=== PATIENT | male | born 1945 | race Caucasian/White ===

== ENCOUNTER → 2024-07-26 | Outpatient (CLI) | payer MEDICARE, SELFPAY ==
--- NOTE | 2024-07-26 | MASS_PTH ---
PATIENT: VANCE MORALES LOC: [facility] U#:[id number] AGE/SX: 79/M ROOM: RE07/26/[address]: Dr. Aries Galeana MD : 1945 BED: DIS: 07/26/2024 SPEC #: [id number] RECD: 07/27/24 10:06 STATUS: PALOMO KATARINA #: [id number] CHASE: 07/26/24 00:[address]: Aries Galeana DEPT: SURGICAL PATHOLOGY RECD BY: Isela Fermin Tissues: Ear, NOS Procedures: Surgery Specimen Level IV HEADER OPERATION: Permanent pathology PRE-OP DIAGNOSIS: Ear mass TISSUE SUBMITTED: Ear mass MICROSCOPIC DIAGNOSIS Ear mass, biopsy: Basal cell carcinoma. 07/28/2024 COMMENT Case has been reviewed in consultation with Dr. Rolon who concurs with the above diagnosis. IDC:[id number] MICROSCOPIC DESCRIPTION Slides are reviewed. GROSS DESCRIPTION Received in fixative is one container labeled with the patient's name and designated Ear mass. The specimen consists of mcpherson-white skin measuring 0.5 x 0.2 x 0.2cm. The entire specimen is submitted in one cassette. 07/27/2024 TC:0 CPT:94353
== END | disposition home or self-care (01) ==
PROVIDERS: Referring Provider Otolaryngology Otolaryngology/Facial Plastic Surgery; Visit Provider Otolaryngology Otolaryngology/Facial Plastic Surgery
DX: C44.211 Basal cell carcinoma of skin of unspecified ear and external auricular canal (principal)
CPT/HCPCS: 87070; 87075; 87205; 88305

== ENCOUNTER 2024-09-20 08:08 | Day surgery (SDC) | payer MEDICARE, OTHER, SELFPAY ==
--- NOTE | 2024-09-14 09:56 | EKG12_ITS ---
Test Reason : PREOP Blood Pressure : */* mmHG Vent. Rate : 61 BPM Atrial Rate : 61 BPM P-R Int : 172 ms QRS Dur : 152 ms QT Int : 428 ms P-R-T Axes : 24 77 -53 degrees QTcB Int : 430 ms Normal sinus rhythm Left bundle branch block Abnormal ECG Confirmed by SARAH BILL, TANNER ([id number]), editor school photograph AJ HAWKINS ([id number]) on 09/15/2024 6:36:56 AM Referred By: Anson Galeana Confirmed By: TANNER SMITH MD
[2024-09-14 10:52] LABS: Hematocrit 44.3 % (40-54); Hemoglobin 14.5 g/dL (13.0-16.5); Mean Corp Hgb Conc 32.7 g/dL (32-36); Mean Corpuscular Hgb 28.5 pg (27.0-32.0); Mean Corpuscular Volume 87.2 fL (80-94); Mean Platelet Vol. 8.9 fl (6.2-12.0); Platelet Count 300 K/mm3 (150-450); RBC Distribution Width CV 13.9 % (11.6-14.6); RBC Distribution Width SD 44.2 fl (35.1-43.9); Red Blood Count 5.08 M/mm3 (4.6-6.2); White Blood Count 9.9 K/mm3 (4.4-11.0)
[2024-09-14 12:49] LABS: Anion Gap 12 (5-15); BUN 14 mg/dL (4-19); BUN/Creat Ratio 16.1 RATIO (10-20); Calcium,Total 9.5 mg/dL (7.6-11.0); Carbon Dioxide 28.6 mmol/L (21.0-32.0); Chloride 102 mmol/L (98-108); Creatinine, Serum 0.88 mg/dL (0.70-1.20); EST Glomerular Filtration Rate 88 (>60); Glucose 194 mg/dL (70-99); Potassium 4.4 mmol/L (3.3-5.1); Sodium Level 142 mmol/L (133-145)
[2024-09-14 13:10] LABS: Hemoglobin A1c 7.5 % (<=5.6)
--- NOTE | 2024-09-14 15:55 | PAT.ANESEVAL ---
Pre-Assessment Diagnosis/Proposed Procedure Planned Operative Procedure(s): (L) Excision, Lesion, Ear canal, frozen section with split thickness skin graft 3 hrs Anesthesia History Anesthesia History - trestle mechanic: Anesthesia History - trestle mechanic Hx Hospitalization No 09/13/24 09:05 Any Problems With Anesthesia No 09/13/24 09:05 Cholinesterase deficiency No 09/13/24 09:05 You/Your Family Experience No 09/13/24 09:05 fever (hyperthermia) with Relationship Recent Exposure to Contagious Disease Does patient have nerve No 09/13/24 09:05 stimulator Patient instructed to have device shut off --Does patient have Pacemaker or ICD? When Was Last Pacemaker Check QUESTION #4 FULL TEXT: You/Your Family Experience fever (hyperthermia) with Anesthesia Last Oral Intake Last Oral intake: Last Oral Intake NPO since Meds taken in AM with sips of water? Meds patient instructed to take am of surgery PONV PONV - trestle mechanic: PONV - trestle mechanic Female No 09/13/24 09:05 HX of Motion Sickness No 09/13/24 09:05 HX of N/V After Surgery No 09/13/24 09:05 Non-Smoker Yes 09/13/24 09:05 Duration of Surgery greater Yes 09/13/24 09:05 than 60 minutes Number of Risk Factors 2 09/13/24 09:05 PONV Score Moderate Risk 09/13/24 09:05 Respiratory Assessment Respiratory Assessment - trestle mechanic: Respiratory Tract Infection Hx - trestle mechanic Hx Respiratory Tract Infection No 09/13/24 09:05 STOP Sleep Apnea STOP Sleep Apnea - trestle mechanic: STOP Sleep Apnea - trestle mechanic Hx Hypertension Yes: controlled with med 09/13/24 09:05 Hx Sleep Apnea No 09/13/24 09:05 CPAP BIPAP Do you snore loudly (louder No 09/13/24 09:05 than talking or can be heard Do you often feel tired/ No 09/13/24 09:05 fatigued/ sleepy during daytime? Has anyone observed you stop No 09/13/24 09:05 breathing during sleep? STOP Results Negative 09/13/24 09:05 QUESTION #5 FULL TEXT : Do you snore loudly (louder than talking or can be heard through closed doors)? 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 Specify any problems Hx of Preganancy in last 3 N/A 09/13/24 09:05 Months Nurse Filling Out Transfusion NBUCHER 09/13/24 09:05 & Questions: Date: 09/13/24 09/13/24 09:05 Time: 09:09/13/24 09:05 Patient unable to answer at this time (ie. confused, unrespo /Reproduction History /Reproductive History - trestle mechanic: /Reproductive Hx- trestle mechanic Hx Now No 09/13/24 09:05 Gestational Age (in weeks): EDC: Hx Hx Para Hx Section SAB No 09/13/24 09:05 PFSH Medical History (Updated 09/13/24 @ 09:10 by Zoie Linda) Diabetes Former smoker Hypertension Home Medications ?Medication ?Instructions ?Recorded ?Last Taken ?Type carvedilol 12.5 mg tablet 12.5 mg PO BID 09/13/24 Unknown History glyburide 5 mg tablet 5 mg PO BID 09/13/24 Unknown History losartan 50 mg tablet 50 mg PO DAILY 09/13/24 Unknown History metformin 500 mg tablet 1,000 mg PO BID 09/13/24 Unknown History pioglitazone 30 mg tablet 30 mg PO DAILY 09/13/24 Unknown History Allergy/AdvReac Type Severity Reaction Status Date / Time No Known Allergies Allergy Verified 09/13/24 09:01 Surgical History (Updated 09/13/24 @ 09:10 by Zoie Linda) History of appendectomy Social History Smoking Status: Former smoker Audit: Pertinent Findings Pertinent Findings EKG Perinent findings: September 14, 2024. Normal sinus rhythm. Left bundle branch block. Recommendation Anesthesia Recommendation Anesthesia recommendation: OPTIMIZED for anesthesia
[2024-09-20] VITALS (10 sets, daily range): BP systolic 125–142; BP diastolic 55–85; PULSE 69–98; RESP 16–20; TEMP 36.2–36.3; O2SAT 80–96; BMI 37.0
[2024-09-20] MEDS: 0.9% Normal Saline (1000mL) 1,000 ML 15 ML IV (08:42)
--- NOTE | 2024-09-20 08:48 | PCM.PRE.AN2 ---
ASA Classification* ASA Classification ASA Classification: 2 Assessment & Plan Anesthesia* Anesthesia Assessment Anesthesia Assessment: Discussed sedation and/or anesthesia options, risks, benefits, and alternatives with patient/parents/legal guardian/POA. Questions invited. The patient/parents/legal guardian/POA seems to understand and agrees to proceed with anesthesia plan. Reviewed the physical assessment, medical history, allergy history and patient home medications list prior to surgery/procedure/anesthetic and documented any changes. Performed airway and anesthesia risk assessments. Anesthesia Type Anesthesia Type: General Anesthesia Focused Assessment* Temperature: 97.1 F Pulse Rate: 69 Blood Pressure: 132/72 Respiratory Rate: 16 Pulse Ox: 92 Airway Assessment Mouth opens: >3 cm Mallampati Score: II Focused Labs Anesthesia Preop lab: CBC WBC 9.9 K/mm3 (4.4-11.0) 09/14/24 10:09/14/24 RBC 5.08 M/mm3 (4.6-6.2) 09/14/24 10:09/14/24 Hgb 14.5 g/dL (13.0-16.5) 09/14/24 10:09/14/24 Hct 44.3 % (40-54) 09/14/24 10:09/14/24 Plt Count 300 K/mm3 (150-450) 09/14/24 10:09/14/24 CHEMISTRY Potassium 4.4 mmol/L (3.3-5.1) 09/14/24 10:09/14/24 Sodium 142 mmol/L (133-145) 09/14/24 10:09/14/24 BUN 14 mg/dL (4-19) 09/14/24 10:09/14/24 Creatinine 0.88 mg/dL (0.70-1.20) 09/14/24 10:09/14/24 Glucose 194 mg/dL (70-99) H 09/14/24 10:09/14/24 COAG Pre-Assessment Diagnosis/Proposed Procedure Planned Operative Procedure(s): (L) Excision, Lesion, Ear canal, frozen section with split thickness skin graft 3 hrs Anesthesia History 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 When Was Last Pacemaker Check QUESTION #4 FULL TEXT: You/Your Family Experience fever (hyperthermia) with Anesthesia Last Oral Intake Last Oral intake: Last Oral Intake NPO since 18:00 09/20/24 08:39 Meds taken in AM with sips of Yes 09/20/24 08:39 water? Meds patient instructed to losartan, coreg 09/20/24 08:39 take am of surgery PONV PONV - replenishment merchandising associate: PONV - replenishment merchandising associate Female No 09/13/24 09:05 HX of Motion Sickness No 09/13/24 09:05 HX of N/V After Surgery No 09/13/24 09:05 Non-Smoker Yes 09/13/24 09:05 Duration of Surgery greater Yes 09/13/24 09:05 than 60 minutes Number of Risk Factors 2 09/13/24 09:05 PONV Score Moderate Risk 09/13/24 09:05 Height & Weight Height & Weight: Anesthesia: Height & Weight Height 5 ft 10 in 09/20/24 08:39 Weight: 117 kg 09/20/24 08:39 Body Mass Index (BMI) 37.0 09/20/24 08:39 Respiratory Assessment Respiratory Assessment - replenishment merchandising associate: Respiratory Tract Infection Hx - replenishment merchandising associate Hx Respiratory Tract Infection No 09/13/24 09:05 STOP Sleep Apnea STOP Sleep Apnea - replenishment merchandising associate: STOP Sleep Apnea - replenishment merchandising associate Hx Hypertension Yes: controlled with med 09/13/24 09:05 Hx Sleep Apnea No 09/13/24 09:05 CPAP BIPAP Do you snore loudly (louder No 09/13/24 09:05 than talking or can be heard Do you often feel tired/ No 09/13/24 09:05 fatigued/ sleepy during daytime? Has anyone observed you stop No 09/13/24 09:05 breathing during sleep? STOP Results Negative 09/13/24 09:05 QUESTION #5 FULL TEXT : Do you snore loudly (louder than talking or can be heard through closed doors)? 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 Specify any problems Hx of Preganancy in last 3 N/A 09/13/24 09:05 Months Nurse Filling Out Transfusion NBUCHER 09/13/24 09:05 & Questions: Date: 09/13/24 09/13/24 09:05 Time: 09:07 09/13/24 09:05 Patient unable to answer at this time (ie. confused, unrespo /Reproduction History /Reproductive History - replenishment merchandising associate: /Reproductive Hx- replenishment merchandising associate Hx Now No 09/13/24 09:05 Gestational Age (in weeks): EDC: Hx Hx Para Hx Section SAB No 09/13/24 09:05 Active Medications Active Medications: Current Medications Generic Name Dose Route Start Last Admin Trade Name Freq PRN Reason Stop Dose Admin Sodium Chloride 1,000 mls @ 15 mls/hr 09/20/24 08:15 09/20/24 08:42 IV 09/25/24 21:34 15 mls/hr .Q48H MERLYN Administration PFSH Medical History Diabetes Former smoker Hypertension Home Medications ?Medication ?Instructions ?Recorded ?Last Taken ?Type carvedilol 12.5 mg tablet 12.5 mg PO BID 09/13/24 09/20/24 History glyburide 5 mg tablet 5 mg PO BID 09/13/24 Unknown History losartan 50 mg tablet 50 mg PO DAILY 09/13/24 09/20/24 History metformin 500 mg tablet 1,000 mg PO BID 09/13/24 Unknown History pioglitazone 30 mg tablet 30 mg PO DAILY 09/13/24 Unknown History Allergy/AdvReac Type Severity Reaction Status Date / Time No Known Allergies Allergy Verified 09/20/24 08:37 Surgical History History of appendectomy Social History Smoking Status: Former smoker Review of Systems (Anesthesia) ROS Narrative System reviewed and no additional complaints, except as documented.
[2024-09-20 08:49] LABS: Bedside Glucose 214 mg/dL (74-106)
--- NOTE | 2024-09-20 09:30 | LES_PTH ---
PATIENT: VANCE MORALES LOC: [facility] [place] U#:[id number] AGE/SX: 79/M ROOM: RE09/20/[address]: Dr. Anson Galeana MD : 1945 BED: DIS: 09/20/2024 SPEC #: [id number] RECD: 09/20/24 12:21 STATUS: PALOMO KATARINA #: [id number] CHASE: 09/20/24 09:[address]: Anson Galeana DEPT: SURGICAL PATHOLOGY RECD BY: Elder Alvarado ENTERED: 09/20/24 12:26 SP TYPE: Lesion OTHR DR: Dr. Riley Mendoza MD Tissues: A - Skin of external ear, NOS B - Skin of external ear, NOS C - Skin of external ear, NOS D - Skin of external ear, NOS E - Skin of external ear, NOS F - Skin of external ear, NOS G - Skin of external ear, NOS H - Skin of external ear, NOS Procedures: Frozen Section (charge) Frozen Section Add[facility] ([facility]) Surgery Specimen Level IV HEADER OPERATION: Excision, lesion, ear canal, frozen section PRE-OP DIAGNOSIS: Basal cell carcinoma of skin of left ear and external auricular canal TISSUE SUBMITTED: A- Posterior conchal bowl, B- Inferior margin, C- Anterior margin, D- Posterior ear canal, E- Deep margin, F- Anterior ear canal, G- Floor ear canal, H- Left ear - main specimen * long black stitch- inferior, short black stitch- posterior, long blue stitch- medial FROZEN SECTION DIAGNOSIS A. Posterior conchal bowl, excison: Negative for invasive carcinoma. B. Inferior margin, excision: Negative for invasive carcinoma. C. Anterior margin, lesion: Negative for invasive carcinoma.D. Posterior ear canal, excision: Negative for invasive carcinoma. E. Deep margin, excision: Negative for invasive carcinoma. F. Anterior ear canal, excision: Negative for invasive carcinoma. G. Floor ear canal, excision: Negative for invasive carcinoma. 09/20/2024 MICROSCOPIC DIAGNOSIS A. Skin, left ear, posterior conchal bowl, excision of margin: - Negative for malignancy. B. Skin, left ear, inferior margin, excision: - Negative for malignancy. C. Skin, left ear, anterior margin, excision: - Negative for malignancy. D. Skin, left ear, posterior ear canal, excision of margin: - Negative for malignancy. E. Left ear, deep margin, soft tissue excision of margin: - Negative for malignancy. - Cartilage focally noted. F. Skin, left ear, anterior ear canal, excision of margin: - Negative for malignancy. G. Skin, left ear, floor of ear canal, excision of margin: - Negative for malignancy. H. Skin, left ear, main specimen, excision: - Basal cell carcinoma, nodular type, ulcerated. - Margins free. - Focal superficial invasion of the cartilage is noted. MICROSCOPIC DESCRIPTION Slides are reviewed. GROSS DESCRIPTION A. Received fresh for intraoperative consultation in a container labeled with the patient's name, date of , and posterior conchal bowl is an unoriented, white-mcpherson strip of skin measuring 1.2 x 0.2 cm with a depth of 0.3 cm. The deep margin is inked green, and it is entirely submitted for frozen section analysis. The remaining remnants are submitted entirely in A1. B. Received fresh for intraoperative consultation in a container labeled with the patient's name, date of , and inferior margin is an unoriented strip of mcpherson-pink skin measuring 1.0 x 0.1 cm with a depth of 0.3 cm. The deep margin is inked green, and it is entirely submitted for frozen section analysis. The remaining remnants are submitted entirely in B1. C. Received fresh for intraoperative consultation in a container labeled with the patient's name, date of , and anterior margin at the tragus is an unoriented strip of white-mcpherson skin measuring 1.1 x 0.2 cm with a depth of 0.2 cm. The deep margin is inked green, and it is entirely submitted for frozen section analysis. The remaining remnants are submitted entirely in C1. D. Received fresh for intraoperative consultation in a container labeled with the patient's name, date of , and left ear: Posterior ear canal frozen section is an unoriented strip of mcpherson-pink skin measuring 0.5 x 0.2 cm with a depth of 0.2 cm. The deep margin is inked green, and it is entirely submitted for frozen section analysis. The remaining remnants are submitted entirely in D1. E. Received fresh for intraoperative consultation in a container labeled with the patient's name, date of , and deep margin is an unoriented, red-mcpherson fragment of soft tissue measuring 0.6 x 0.2 x 0.2 cm. The specimen is entirely submitted for frozen section analysis. The remaining remnants are submitted entirely in E1. F. Received fresh for intraoperative consultation in a container labeled with the patient's name, date of , and anterior ear canal-left ear frozen section is an unoriented fragment of mcpherson-pink skin measuring 0.2 x 0.1 cm with a depth of 0.1 cm. The deep margin is inked green, and it is entirely submitted for frozen section analysis. The remaining remnants are submitted entirely in F1. G. Received fresh for intraoperative consultation in a container labeled with the patient's name, date of , and floor ear canal left ear frozen section is an irregular and unoriented mcpherson-pink fragment of skin measuring 0.3 x 0.2 cm with a depth of 0.2 cm. The deep margin is inked green, and it is submitted entirely for frozen section analysis. The remaining donuts are submitted entirely in G1. H. Received in formalin in a container labeled with the patient's name, date of , and left ear: Main specimen is an oriented, irregular skin excision with a long blue stitch indicating medial margin, long black stitch indicating inferior margin, and short black stitch indicating posterior margin (orientation designated on container versus requisition sheet does not match; surgeon is contacted and correct orientation is as indicated above). The long blue stitch is arbitrarily designated as 12:00, long black stitch is arbitrarily designated as 6:00, and short black stitch is arbitrarily designated as 3:00. The specimen is 4.2 cm from 12-6 o'clock, 3.0 cm from 3-9 o'clock, with excisional depth ranging from 0.3 to 2.1 cm. The white-mcpherson epidermis is notable for an irregular, mcpherson-brown and ulcerated lesion with pale, white, pearly borders. Lesion measurement: 3.5 x 1.7 x 0.4 cm. It is situated to the margins as follows:12:00-0.6 cm3:00-0.4 cm6:00-0.9 cm9:00-0.2 cm Ink arreguin: 12-3-6 o'clock margin is blue; 6-9-12 o'clock margin is black. The specimen is serially sectioned from 12:00 to 6:00 into 11 slices to reveal that the ulcerated lesion is situated within slices 2-11 and exhibits white-pink, friable cut surfaces with a maximum thickness of 1.1 cm. The mass comes to within 0.1 cm of the deep 9:00 margin, and 0.2 cm of the deep 3:00 margin. The mass focally appears to involve the cartilage, however, does not grossly extend to the deep margin. A section diagram is made. Fiber Optic Assembly Worker sections:H1. Slice 1, perpendicular sections of 12:00 tip H2. Slices 2-3H3. Slice 4 with closest 3:00 peripheral skin margin and 9:00 peripheral skin margin (due to irregular shape of specimen, deep blue margin extends past the epidermal surface)H4. Slice 5 with mass possibly involving cartilage on 3:00 side (area with maximum thickness)H5. Slice 6, closest 9:00 and 3:00 deep marginsH6. Slice 7H7. Slice 8H8. Slices 9-10H9. Slice 11, perpendicular sections of 6:00 tip [facility] 09-21-2024 CPT:17397m9,[id number]
--- NOTE | 2024-09-20 09:49 | PCM.DC.SUM ---
Providers Primary Care Physician: Dr. Riley Mendoza MD Reason For Visit: Excision, Lesion, Ear canal, frozen section with s Medications at Discharge Home Medications carvedilol 12.5 mg tablet 12.5 mg PO BID 09/13/24 glyburide 5 mg tablet 5 mg PO BID 09/13/24 losartan 50 mg tablet 50 mg PO DAILY 09/13/24 metformin 500 mg tablet 1,000 mg PO BID 09/13/24 pioglitazone 30 mg tablet 30 mg PO DAILY 09/13/24 Weight / BMI Weight Weight: 117 kg Body Mass Index (BMI) 37.0 ABG / Lab / Microbiology Data 09/14/24 10:08 09/14/24 10:08 Laboratory: Laboratory Results - last 24 hr 09/20/24 08:31: POC Glucose 214 H D/C Instructions Discharge Diet: No restrictions Discharge Activity: Return to Normal Activity Additional Activity Instructions: Remove dressing tomorrow. Apply ear drops to packing twice a day. DC O2, CPAP, BIPAP Needs Home O2 Discharge instructions: No Please Follow Up With: Anson Galeana MD When: End of next week Meaningful Use Info Meaningful Use Meaningful Use Diagnoses (Choose all that apply): None applicable Ischemic Stroke Statin Dosing Therapy Reference: STATIN DOSE THERAPY REFERENCE: * Patients > 75 years receive moderate or high dose statin therapy. * Patients 75 years or YOUNGER should receive HIGH intensity statin dose unless contraindicated. You will be required to document reason for non-treatment if statin daily dose does not meet guidelines. HIGH DOSE STATIN THERAPY DAILY Atorvastatin > than or = to 40 mg Rosuvastatin > than or = to 20 mg Amlodipine + Atorvastatin > than or = to 2.5/40 mg Ezetimibe + Simvastatin 10/80 mg Simvastatin 80mg Discharge Plan Admission Attending Provider: Anson Galeana Primary Care Provider: Riley Mendoza Instructions Print Language: Urdu Discharge Orders/Prescriptions Prescriptions: No Action losartan 50 mg tablet 50 mg PO DAILY metformin 500 mg tablet 1,000 mg PO BID carvedilol 12.5 mg tablet 12.5 mg PO BID glyburide 5 mg tablet 5 mg PO BID pioglitazone 30 mg tablet 30 mg PO DAILY Other Ambulatory Orders: 12 Lead EKG (Routine) Timeframe: [id number] Location: None Selected Ordered By: Dr. Anson Galeana Disposition Disposition (needs filled in before D/C Order can be placed): Home, Self Care
--- NOTE | 2024-09-20 09:51 | OP.PCM_ITS ---
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 He was placed in the supine position on the operating room table. He was given sufficient general endotracheal anesthesia. The table was turned 90 degrees in a clockwise fashion. The left ear and left thigh were prepped and draped sterilely. 1% lidocaine with epinephrine was injected into the left external auditory canal. After sufficient vasoconstriction, I used a round [place] blade, and straight [place] blade as well as a 15 blade to circumferentially make an incision around the carcinoma. Dissection was carried down sharply to the cartilage. I kept the cartilage with the Specimen in the Area of the Carcinoma. Eventually the carcinoma was excised. The specimen was marked with suture. I then sent additional lateral, anterior, posterior, superior and deep margins for frozen section I had to send additional superior and posterior margins. My last posterior margin was positive. Hemostasis was achieved with bipolar cautery. Given the severity of the disease I elected to graft the wound and plan for radiation therapy postoperatively. I irrigated the wound with saline. Hemostasis was achieved with bipolar cautery. Next, I injected 1% lidocaine with epinephrine into the skin overlying the intended skin graft. A [place] dermatome was used to harvest a 2x2 inch piece of split-thickness skin graft from the left thigh. This was then treated with topical 1% lidocaine with epinephrine topically. A Tegaderm and Que bandage were eventually applied. I hand piecrusted of the split-thickness skin graft with a 15 blade. This split- thickness skin graft was then placed into the ear defect. This was sewn circumferentially with 6-0 fast-absorbing gut. I placed a [place] pack into the external auditory canal. I inflated this with cipro drops. I then placed Xeroflo onto the graft. I sewed a dental roll through and through the conchal cartilage to keep Xeroflo onto the graft. A Olga dressing was then appli ed. The patient was then awoken and brought to the recovery room in stable condition. Blood loss minimal, replacement none. Sponge, needle, and instrument count were correct at the end of the procedure. Surgical Findings: basal cell carcinoma
--- NOTE | 2024-09-20 09:51 | PCM.OPRPT ---
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 He was placed in the supine position on the operating room table. He was given sufficient general endotracheal anesthesia. The table was turned 90 degrees in a clockwise fashion. The left ear and left thigh were prepped and draped sterilely. 1% lidocaine with epinephrine was injected into the left external auditory canal. After sufficient vasoconstriction, I used a round [place] blade, and straight [place] blade as well as a 15 blade to circumferentially make an incision around the carcinoma. Dissection was carried down sharply to the cartilage. I kept the cartilage with the Specimen in the Area of the Carcinoma. Eventually the carcinoma was excised. The specimen was marked with suture. I then sent additional margins for frozen section. All of the frozen sections came back negative for carcinoma. Hemostasis was achieved with bipolar cautery. I irrigated the wound with saline. Next, I injected 1% lidocaine with epinephrine into the skin overlying the intended skin graft. A [place] dermatome was used to harvest a 2x2 inch piece of split-thickness skin graft from the left thigh. This was then treated with topical 1% lidocaine with epinephrine topically. A Tegaderm and Que bandage were eventually applied. I hand pie crusted the split-thickness skin graft with a 15 blade. This split-thickness skin graft was then placed into the ear defect. This was sewn circumferentially with 6-0 fast-absorbing gut. I used a drop of Dermabond medially in the canal to place the graft against the sycuan skin. I placed a [place] pack into the external auditory canal. I inflated this with cipro drops. I then placed Xeroflo onto the graft in the conchal bowl. I sewed a dental roll through and through the conchal cartilage to keep Xeroflo onto the graft. A [place] dressing was then applied. The patient was then awoken and brought to the recovery room in stable condition. Blood loss minimal, replacement none. Sponge, needle, and instrument count were correct at the end of the procedure. Surgical Findings: basal cell carcinoma Complications Complications: No
[2024-09-20] MEDS: Lidocaine 1% /Epi 1:100 (20ml) 20 ML Vial (11:53)
[2024-09-20] MEDS: Mineral Oil, Light Sterile 10 ML Vial MC (11:53)
[2024-09-20] MEDS: CIPROFLOXACIN 0.3% 10 DRP OPHTHALMIC (12:45)
--- NOTE | 2024-09-20 13:16 | PCM.POST.ANE ---
Anesthesia: Postop Eval I Current Vital Signs Temperature: 97.3 F Pulse Rate: 89 Blood Pressure: 125/85 Respiratory Rate: 20 Pulse Ox: 96 Oxygen Delivery Method: Nasal Cannula Oxygen Flow Rate (L/min): 4 Assessment Airway patent: Yes Spontaneous unlabored respirations: Yes Mental status: Awake nausea: No Vomiting: No Anesthesia Complication: No Fluid Hydration Crystalloid volume administer (ml): 1,400 Total IV fluid infused: 1,400 Progress Note Anesthesia document: Postop Eval 1 completed: Yes
--- NOTE | 2024-09-20 13:59 | POSTOPAN2_ITS ---
Anesthesia Postop Eval I Sum Postop Eval Completion status Anesthesia document: Postop Eval 1 completed: Yes Anesthesia Postop Eval I Summary Anesthesia Postop Eval I Summary: Anesthesia Postop Eval I: Assessment Summary Airway patent Yes 09/20/24 13:17 [email or web address] Spontaneous unlabored Yes 09/20/24 13:17 [email or web address] respirations Mental status Awake 09/20/24 13:17 [email or web address] nausea No 09/20/24 13:17 [email or web address] Vomiting No 09/20/24 13:17 [email or web address] Anesthesia Postop Eval I: Fluid Summary Crystalloid volume administer 1,400 09/20/24 13:17 [email or web address] (ml) Colloids volume administered ( ml) Blood Product volume administered (ml) Total IV fluid infused 1,400 09/20/24 13:17 [email or web address] Anesthesia Postop Eval I: Summary Notes Anesthesia Complication No 09/20/24 13:17 [email or web address] Anesthesia Complication Comment: Post-operative progress note Anesthesia: Postop Eval II Evaluation Mental status: Awake Pain Level: 0 nausea: No Vomiting: No
--- NOTE | 2024-09-20 13:59 | PCM.POSTANE2 ---
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 Spontaneous unlabored Yes 09/20/24 13:17 [email or web address] [email or web address] respirations Mental status Awake 09/20/24 13:17 [email or web address] nausea No 09/20/24 13:17 [email or web address] [email or web address] Vomiting No 09/20/24 13:17 [email or web address] Anesthesia Postop Eval I: Fluid Summary Crystalloid volume administer 1,400 09/20/24 13:17 [email or web address] (ml) Colloids volume administered ( ml) Blood Product volume administered (ml) Total IV fluid infused 1,400 09/20/24 13:17 [email or web address] [email or web address] Anesthesia Postop Eval I: Summary Notes Anesthesia Complication No 09/20/24 13:17 ALLIGATOR [email or web address] Anesthesia Complication Comment: Post-operative progress note Anesthesia: Postop Eval II Evaluation Mental status: Awake Pain Level: 0 nausea: No Vomiting: No
== END 2024-09-20 14:14 | disposition home or self-care (01) ==
LOC: SDC 08:09 → AC 08:10
PROVIDERS: PCP Family Medicine; Referring Provider Otolaryngology; Visit Provider Otolaryngology
PROC: (CPT 15120; principal; 2024-09-20 09:15)
DX: L98.9 Disorder of the skin and subcutaneous tissue, unspecified (principal); E11.9 Type 2 diabetes mellitus without complications; I10 Essential (primary) hypertension; Z79.899 Other long term (current) drug therapy; Z87.891 Personal history of nicotine dependence
CPT/HCPCS: 15120; 00300; 36415; 80048; 82962; 83036; 85027; 88305; 88331; 88332; 93005; J2405